=== PATIENT | male | born 1990 | race Caucasian/White ===

== ENCOUNTER 2022-01-19 06:50 | Emergency (ER) | payer OTHER ==
[2022-01-19] MEDS ORDERED: Sodium Chloride 0.9% 1,000 ML IV ONE ×2 (07:15→08:55)
[2022-01-19 08:17] LABS: CARBON DIOXIDE,CO2 28.1 mmol/L (21.0-32.0); POTASSIUM,K 3.7 mmol/L (3.5-5.1)
== END 2022-01-19 09:50 | disposition home or self-care (01) ==
LOC: MW.ED 06:50
DX: E86.0 Dehydration (principal); Z20.822 Contact with and (suspected) exposure to COVID-19
CPT/HCPCS: 36415; 80053; 82550; 85025; 87635; 96360; 96361; 99284; J7030; U0002